=== PATIENT | female | born 1985 | race Caucasian/White ===

== ENCOUNTER 2016-11-22 09:39 | Emergency (ER) | payer BC ==
--- NOTE | 2016-11-22 10:04 | UC ---
Respiratory Complaint HPI - HPI Summary HPI Summary: 31 YEAR OLD FEMALE PRESENTS WITH COMPLAINS OF EXPOSURE TO WHOOPING COUGH. - History of Current Complaint Stated Complaint: WHOOPING COUGH EXPOSURE Time Seen by Provider: 11/22/16 10:04 Hx Obtained From: Patient Onset/Duration: Other - ESXPOSURE Timing: Constant Severity Initially: Mild Severity Currently: Mild - Allergies/Home Medications Allergies/Adverse Reactions: Allergies Allergy/AdvReac Type Severity Reaction Status Date / Time No Known Allergies Allergy Verified 11/22/16 10:05 Home Medications: Home Medications Levonorgestrel (Iud) [Mirena IUD] 20 mcg IU ONCE 11/22/16 [History Confirmed 10/31] PMH/Surg Hx/FS Hx/Imm Hx Previously Healthy: Yes Review of Systems Constitutional: Negative Skin: Negative Eyes: Negative ENT: Negative Respiratory: Negative Cardiovascular: Negative Gastrointestinal: Negative Genitourinary: Negative Motor: Negative Neurovascular: Negative Musculoskeletal: Negative Neurological: Negative Psychological: Negative All Other Systems Reviewed And Are Negative: Yes Physical Exam Triage Information Reviewed: Yes Vital Signs Reviewed: Yes Eye Exam: Normal ENT Exam: Normal Dental Exam: Normal Neck exam: Normal Neck: Positive: 1 Respiratory Exam: Normal Cardiovascular Exam: Normal Abdominal Exam: Normal Musculoskeletal Exam: Normal Neurological Exam: Normal Psychological Exam: Normal Skin Exam: Normal Respiratory Course/Dx - Differential Dx/Diagnosis Provider Diagnoses: EXPOSURE TO WHOOPING COUGH Discharge - Discharge Plan Condition: Stable Disposition: HOME Prescriptions: Azithromyxin JESIKA (NF) [Z-Jesika (Zithromax) 250 mg tabs #6] 2 tab PO .TODAY, THEN 1 DAILY #6 tab Patient Education Materials: Pertussis (ED) Forms: *Gen. Provider Communication, *Work Release Referrals: Non Staff,Doctor [Primary Care Provider] - Additional Instructions: PERTUSSIS EXPOSURE. PATIENT INFORMATION ON PERTUSSIS.
[2016-11-22 10:05] VITALS: BP 117/58
== END 2016-11-22 10:47 | disposition home or self-care (01) ==
LOC: UCCORT 09:39
DX: Z20.89 Contact with and (suspected) exposure to other communicable diseases (principal)
CPT/HCPCS: 87798; 99202; G0463

== ENCOUNTER 2017-03-18 19:01 | Emergency (ER) | payer BC | END 2017-03-18 20:37 | disposition left against medical advice (07) | LOC: UCCORT 19:01 | DX: M25.571 Pain in right ankle and joints of right foot (principal); Z53.21 Procedure and treatment not carried out due to patient leaving prior to being seen by health care provider ==

== ENCOUNTER 2018-06-21 13:57 | Emergency (ER) | payer BC ==
[2018-06-21 14:13] VITALS: BP 136/67
[2018-06-21] MEDS ORDERED: Acetaminophen TAB* 325 MG PO ONE (14:39)
[2018-06-21] MEDS ORDERED: Ondansetron ODT TAB* 4 MG PO ONE (14:40)
--- NOTE | 2018-06-21 14:46 | UC ---
Headache HPI - HPI Summary HPI Summary: 32-year-old woman comes in with a chief complaint of a headache. Headache started 2 days ago. It's primarily right frontal and temporal area. She is also nauseous with the headache. Today she is having bilateral blurry vision with the headache. She does have a history of similar headaches although not as intense or with the added symptoms of nausea vomiting or vision blurring. She tells me that in the past she's had scalp inflamed sebaceous cysts that gave her the headaches and when they get removed the headache goes away. Patient denies any history of brain tumors or masses. Headaches about a 6 out of 10. Laying resting makes the headache better. Light does bother her eyes. Denies any focal weakness or numbness. 5 days ago she had a similar headache that went away within 24 hours. At this time she does have several scalp swelling is consistent with the prior sebaceous cyst although not as large as they usually are when they started giving her headaches. Does have a mild sore throat. Has urinary frequency, no dysuria. Took ibuprofen JPTA, it has not helped. - History Of Current Complaint Chief Complaint: UCHeadache Stated Complaint: HEADACHE x2 DAYS,SORE THROAT Time Seen by Provider: 06/21/18 14:19 Hx Last Menstrual Period: 7 years ago--IUD Pain Intensity: 6 - Allergies/Home Medications Allergies/Adverse Reactions: Allergies Allergy/AdvReac Type Severity Reaction Status Date / Time No Known Allergies Allergy Verified 06/21/18 14:13 PMH/Surg Hx/FS Hx/Imm Hx Previously Healthy: Yes - Surgical History Surgical History: Yes Surgery Procedure, Year, and Place: vascular surgery-Mar 2018 - Family History Known Family History: Positive: Non-Contributory - Social History Alcohol Use: None Substance Use Type: None Smoking Status (MU): Never Smoked Tobacco - Immunization History Most Recent Influenza Vaccination: no 2017 Review of Systems All Other Systems Reviewed And Are Negative: Yes Constitutional: Positive: Negative Skin: Positive: Negative Eyes: Positive: Blurred Vision ENT: Positive: Sore Throat Respiratory: Positive: Negative Cardiovascular: Positive: Negative Gastrointestinal: Positive: Nausea Genitourinary: Positive: Frequency Motor: Positive: Negative Neurovascular: Positive: Negative Musculoskeletal: Positive: Negative Neurological: Positive: Headache Psychological: Positive: Negative Is Patient Immunocompromised?: No Physical Exam Triage Information Reviewed: Yes Appearance: Well-Nourished, Ill-Appearing - mild, Pain Distress - mild Vital Signs: Initial Vital Signs Temp 98.0 F 06/21/18 14:04 Pulse 82 06/21/18 14:04 Resp 18 06/21/18 14:04 BP 136/67 06/21/18 14:04 Pulse Ox 100 06/21/18 14:04 Vital Signs Reviewed: Yes Eyes: Positive: Conjunctiva Clear, Other: - perrla/eomi, positive photophobia ENT: Positive: Pharyngeal erythema Neck: Positive: Supple Respiratory: Positive: Lungs clear, Normal breath sounds, No respiratory distress Cardiovascular: Positive: RRR Musculoskeletal Exam: Normal Musculoskeletal: Positive: Strength Intact, ROM Intact Neurological Exam: Normal Neurological: Positive: Alert, Muscle Tone Normal Psychological Exam: Normal Psychological: Positive: Age Appropriate Behavior Skin Exam: Normal Headache Course/Dx - Course Course Of Treatment: Patient Name: ARY SHIELDS Medical Record#: [id number] Ordering Physician: Maxim Gauthier MD Acct.#: [id number] : 1985 Age: 32 Sex: F Location: [facility] Exam Date: 06/21/18 1441 ADM Status: REG ER Order Information: CT BRAIN WO Accession Number: [id number] CPT: 88727 HISTORY: EDEN COMPARISONS: None relevant available at the time of dictation. TECHNIQUE: Multiple contiguous axial CT scans were obtained of the head without intravenous contrast. FINDINGS: HEMORRHAGE/INFARCT: There is no hemorrhage or acute infarct. MASSES/SHIFT: There is no mass or shift. EXTRA-AXIAL SPACES: There are no extra-axial fluid collections. SULCI AND VENTRICLES: The sulci and ventricles are normal in size and position for the patient's stated age. CEREBRUM: There are no focal parenchymal abnormalities. BRAINSTEM: There are no focal parenchymal abnormalities. CEREBELLUM: There are no focal parenchymal abnormalities. VESSELS: The vessels are grossly normal. PARANASAL SINUSES: The paranasal sinuses are clear. ORBITS: The orbits are unremarkable. BONES AND SOFT TISSUE: Epidural inclusion cysts are noted scalp. OTHER: None IMPRESSION: NO ACUTE INTRACRANIAL PATHOLOGY. <Electronically signed by Hoang Hamm MD in OV> 06/21/18 [address], urinalysis and strep test with the patient and her . Patient reports she's had similar symptoms in the past when her epidural inclusion cyst of her scalp have been giving her pain and that the symptoms improved once those removed by her primary care doctor. At this time the patient does have vertigo but without nystagmus heel to agarwal and finger-nose were both normal. Patient's also able to walk and not be off balance as long as she is not turning her head. The dizziness doesn't go away at rest. We discussed the possibility of stroke and given the above findings the cause of vertigo appears to be peripheral. I did let them know that if she did worsen or did not improve she needs to get reevaluated in the emergency department. We will treat the UTI with Augmentin. - Differential Dx/Diagnosis Provider Diagnosis: Headache, Pharyngitis, Vertigo, UTI (urinary tract infection) Discharge - Sign-Out/Discharge Documenting (check all that apply): Patient Departure All imaging exams completed and their final reports reviewed: Yes - Discharge Plan Condition: Stable Disposition: HOME Prescriptions: Amoxicillin/Clavulanate TAB* [Augmentin TAB 875*] 875 mg PO BID #20 tab Meclizine HCl [Motion Sickness Relief] 25 mg PO Q6HR PRN #20 tablet PRN Reason: Dizziness Ondansetron ODT TAB* [Zofran 4 MG Odt TAB*] 4 mg PO Q6H PRN #10 tab.odt PRN Reason: Nausea Patient Education Materials: Urinary Tract Infection in Women (ED), Pharyngitis (ED), Vertigo (ED), Acute Headache (ED) Forms: *Work Release Referrals: [facility] [Outside] Additional Instructions: FOLLOW UP WITH YOUR PRIMARY CARE DOCTOR. GO TO THE EMERGENCY DEPARTMENT IF YOUR CONDITION WORSENS; WEAKNESS, NUMBNESS, DIFFICULTY WITH VISION OR SPEECH, YOU FEEL ILL OR ANY QUESTIONS OR CONCERNS. - Billing Disposition and Condition Condition: STABLE Disposition: Home
[2018-06-21] MEDS ORDERED: Meclizine TAB* 12.5 MG PO ONE (15:19)
== END 2018-06-21 16:33 | disposition home or self-care (01) ==
LOC: UCCORT 13:57
DX: J02.9 Acute pharyngitis, unspecified (principal); N39.0 Urinary tract infection, site not specified; R51 Headache; R42 Dizziness and giddiness; R11.0 Nausea
CPT/HCPCS: 70450; 81003; 84702; 87086; 87651; 99212; A9270-GY; G0463